=== PATIENT | female | born 1990 | race Caucasian/White ===

== ENCOUNTER → 2017-01-28 | Outpatient (CLI) | payer BC, MEDICAID ==
[~2017-01-28] MED LIST: ALBUTEROL0.09 MG/A1 IH; AMOXICILLIN/CLA1 TA1 PO; ANTIVERT 12.512.5 MG PO; BCP TD; CATAFLAM50 MG PO; CATAPRES 0.1MG0.1 MG PO; CEPHALEXIN500 M1 PO; DEPO-PROVER150 MG/M1 IM; FEMIRON20 MG; FEOSOL50 MG PO; FERROUS SU325 MG/TAB PO; FIORICET 325 MG1 TA1 PO; FISH OIL CONC1000 MG PO; FLAGYL500 MG PO; IMITREX 25MG TA25 MG PO; INDERAL 20MG20 MG PO; INDERAL60 MG PO; IRON FERROUS S325 MG; KLOR-CON 1010 MEQ PO; LO LOESTRIN FE1 TAB PO; LORTAB 5/500 501 TAB PO; MOTRIN 600600 MG/TAB PO; NAPROSYN500 MG PO; NEXPLANON68 MG ID; NORCO 325 MG-51 TAB PO; NORMODYNE100 MG PO; ONE DAILY1 TA1 PO; PEN-VEE K500 MG PO; PEPCID 20MG TAB20 MG PO; PERCOCET 325 MG1 TA2 PO; PHENERGAN 25 TA25 MG PO; PRENATAL1 TA2 PO; PRENATAL1 TA6; PROAIR HFA0.09 MG/AC IH; SLOW FE160 MG PO; SLOW FE45 MG PO; TERAZOL0.4% VG; TRANDATE 100MG100 MG PO; TYLENOL 325MG325 MG PO; ZOFRAN 4MG T4 MG/TAB PO; ZOFRAN ODT4 MG PO
== END ==
LOC: COL.VAS 08:28
DX: I70.1 Atherosclerosis of renal artery (principal)

== ENCOUNTER 2017-04-08 07:23 | Day surgery (SDC) | payer BC, MEDICAID ==
[~2017-04-08] VITALS: Ht 152.4 cm; Wt 50.2 kg
[~2017-04-08 07:23] MED LIST changes: -INDERAL60 MG PO; -LO LOESTRIN FE1 TAB PO
[2017-04-08] MEDS ORDERED: INDERAL60 MG PO (08:19)
[2017-04-08] MEDS ORDERED: LO LOESTRIN FE1 TAB PO (08:19)
[2017-04-08 08:20] VITALS: BP 122/80; PULSE 45; TEMP 97.2
[2017-04-08 09:10] VITALS: BP 121/69; PULSE 48; TEMP 98.1
[2017-04-08 09:15] VITALS: BP 118/70; PULSE 48
[2017-04-08 09:30] VITALS: BP 107/63; PULSE 43
[2017-04-08 09:45] VITALS: BP 110/74; PULSE 46
[2017-04-08 13:30] VITALS: BP 120/80; PULSE 54
== END 2017-04-08 10:00 | disposition home or self-care (01) ==
LOC: SDCO 07:23
DX: K59.00 Constipation, unspecified (principal); R19.7 Diarrhea, unspecified; D50.9 Iron deficiency anemia, unspecified; K21.0 Gastro-esophageal reflux disease with esophagitis; I10 Essential (primary) hypertension; Z79.899 Other long term (current) drug therapy
CPT/HCPCS: J2250; J3010; J7030

== ENCOUNTER 2017-05-07 19:52 | Emergency (ER) | payer BC, MEDICAID ==
[~2017-05-07] VITALS: Ht 152.4 cm; Wt 46.8 kg
[~2017-05-07 19:52] MED LIST changes: +INDERAL60 MG PO; +LO LOESTRIN FE1 TAB PO
[2017-05-07 19:55] VITALS: TEMP 99.1
[2017-05-07 20:28] LABS: MEAN CELL VOLUME 83 fl (80.0-100.0); MEAN CORPUSCULAR HGB CONC 35 g/dl (33.0-37.0); MEAN PLATELET VOLUME 10.4 fl (7.4-10.4); PLATELET COUNT 231 K/mm3 (130-400); RED BLOOD COUNT 4.03 M/mm3 (4.10-5.30); REDCELL DISTRIBUTION WIDTH-CV 15.3 % (11.5-14.5); WHITE BLOOD COUNT 8.2 K/mm3 (4.8-10.8)
[2017-05-07 20:31] LABS: PH 7 (5-8); URINE APPEARANCE Clear; URINE BACTERIA Rare /hpf; URINE BILIRUBIN Negative (NEGATIVE); URINE BLOOD Negative (NEGATIVE); URINE COLOR Straw; URINE GLUCOSE Negative (NEGATIVE); URINE KETONE Negative (NEGATIVE); URINE RBC 0-2 /hpf; URINE UROBILINOGEN Negative (NEGATIVE); URINE WBC 0-2 /hpf
[2017-05-07 20:40] LABS: ADJUSTED CALCIUM 9.3 mg/dL (8.4-10.2); ALBUMIN 4.5 gm/dL (3.5-5.0); BILIRUBIN,TOTAL 0.7 mg/dL (0.0-1.0); CALCIUM 9.7 mg/dL (8.4-10.2); CREATININE, serum 0.74 mg/dL (0.52-1.25); POTASSIUM 3.4 mmol/L (3.4-5.0); TOTAL PROTEIN 7.6 gm/dL (6.4-8.2)
[2017-05-07 20:42] LABS: ADD PATHOLOGY DIFF REVIEW NO; C-REACTIVE PROTEIN 0.5 mg/dL (0.0-0.9); HEMATOCRIT 33.6 % (37.0-47.0); HEMOGLOBIN 11.6 g/dl (12.5-16.0); MEAN CORPUSCULAR HEMOGLOBIN 29 pg (27.0-31.0)
[2017-05-07 20:47] LABS: BAND 16 % (0-10); EOSINOPHIL 1 % (0-4); NEUTROPHILS 54 % (42.0-75.2); PLATELET ESTIMATE NORMAL (NORMAL); TOTAL CELLS COUNTED 100
[2017-05-07] MEDS ORDERED: NORCO 325 MG-51 TAB PO (21:53)
[2017-05-07] MEDS ORDERED: ZOFRAN 4MG T4 MG/TAB PO (21:53)
[2017-05-07 22:26] VITALS: BP 155/96; PULSE 57
== END 2017-05-07 22:33 | disposition home or self-care (01) ==
LOC: COL.ER 19:52
PROVIDERS: Emergency Medicine
DX: R10.31 Right lower quadrant pain (principal); R11.2 Nausea with vomiting, unspecified
CPT/HCPCS: J1170; J2550; J7030; Q9967

== ENCOUNTER 2017-05-15 22:16 | Emergency (ER) | payer BC, MEDICAID ==
[~2017-05-15] VITALS: Ht 152.4 cm; Wt 45.5 kg
[2017-05-15 22:19] VITALS: TEMP 98.4
[2017-05-15 22:58] LABS: BASO # 0.1 (0.0-0.2); BASO % 0.7 % (0.0-2.0); EOS # 0.1 (0.0-0.7); EOS % 1.4 % (0-4.0); GRAN # 4.3 (1.4-6.5); GRAN % 58.7 % (42.2-75.2); LYMPH # 2.4 (1.2-3.4); LYMPH % 32.9 % (20.0-51.0); MEAN CELL VOLUME 83 fl (80.0-100.0); MEAN CORPUSCULAR HGB CONC 35 g/dl (33.0-37.0); MEAN PLATELET VOLUME 10.6 fl (7.4-10.4); MONO # 0.4 (0.1-0.6); PLATELET COUNT 258 K/mm3 (130-400); RED BLOOD COUNT 4.05 M/mm3 (4.10-5.30); REDCELL DISTRIBUTION WIDTH-CV 14.4 % (11.5-14.5); WHITE BLOOD COUNT 7.3 K/mm3 (4.8-10.8)
[2017-05-15 23:00] LABS: HEMATOCRIT 33.6 % (37.0-47.0); HEMOGLOBIN 11.9 g/dl (12.5-16.0); MEAN CORPUSCULAR HEMOGLOBIN 29 pg (27.0-31.0)
[2017-05-15 23:14] LABS: ADJUSTED CALCIUM 8.9 mg/dL (8.4-10.2); ALBUMIN 4.5 gm/dL (3.5-5.0); BILIRUBIN,TOTAL 0.8 mg/dL (0.0-1.0); CALCIUM 9.3 mg/dL (8.4-10.2); CREATININE, serum 0.85 mg/dL (0.52-1.25); POTASSIUM 3.3 mmol/L (3.4-5.0); TOTAL PROTEIN 7.7 gm/dL (6.4-8.2)
[2017-05-16 00:15] VITALS: BP 146/89; PULSE 60
== END 2017-05-16 00:15 | disposition home or self-care (01) ==
LOC: COL.ER 22:16
PROVIDERS: Emergency Medicine
DX: R10.31 Right lower quadrant pain (principal); K92.1 Melena; I10 Essential (primary) hypertension; D64.9 Anemia, unspecified